=== PATIENT | female | born 1970 | race Caucasian/White ===

== ENCOUNTER 2024-02-16 07:43 | Day surgery (SDC) | payer OTHER, MEDICAID ==
[~2024-02-16] VITALS: Ht 157.5 cm; Wt 73.5 kg
[2024-02-16 09:03] VITALS: O2SAT 100
[2024-02-16] MEDS ORDERED: MIDAZOLAM HCL 5 MG/5 ML VIAL ONE (09:47)
[2024-02-16] MEDS ORDERED: MEPERIDINE 100 MG INJ. 100 MG/ML VIAL ONE (12:59)
[2024-02-16 13:55] VITALS: BP_SYST 104; PULSE 70; RESP 59
== END 2024-02-16 11:10 | disposition home or self-care (01) ==
LOC: SDS 07:43 → SMU 07:43 → SDS 11:10
PROVIDERS: ATTEND Internal Medicine
DX: R19.4 Change in bowel habit (principal); D12.2 Benign neoplasm of ascending colon; K29.50 Unspecified chronic gastritis without bleeding; R93.89 Abnormal findings on diagnostic imaging of other specified body structures; F41.9 Anxiety disorder, unspecified; E78.00 Pure hypercholesterolemia, unspecified; M19.90 Unspecified osteoarthritis, unspecified site; Z90.49 Acquired absence of other specified parts of digestive tract; Z79.899 Other long term (current) drug therapy
CPT/HCPCS: 45380; 43239; 99152; 88305; 88312; 88313; 99153; G0378; J2250; J2175